=== PATIENT | male | born 2000 | race Caucasian/White ===

== ENCOUNTER 2023-11-28 21:44 | Inpatient (IN) | payer MEDICAID, OTHER ==
[~2023-11-28] VITALS: Ht 172.7 cm; Wt 88.2 kg
[2023-11-28 22:43] LABS: Basophils # (auto) 0 10 ^3/uL (0-0.2); Basophils % (auto) 0.2 % (0.0-2.0); Eosinophils # (auto) 0 10 ^3/uL (0-0.8); Hematocrit 38.4 % (41.0-53.0); Lymphocytes # (auto) 0.7 10 ^3/uL (0.4-5.4); Lymphocytes % (auto) 5.2 % (10.0-50.0); Mean Corpuscular Hemoglobin 29.1 pg (28.0-32.0); Mean Corpuscular Hgb Conc. 33.8 g/dL (32.0-36.0); Monocytes # (auto) 0.7 10 ^3/uL (0-1.3); Monocytes % (auto) 5.2 % (0.0-12.0); Neutrophils # (auto) 12.9 10 ^3/uL (1.6-8.6); Neutrophils % (auto) 89.4 % (37.0-80.0); Red Blood Cells 4.47 10^6/uL (4.5-5.90); Red Cell Distribution Width 13.9 % (11.8-14.3); White Blood Cell 14.4 10^3/uL (4.4-10.8)
[2023-11-28 22:52] LABS: Anion Gap 21 (5-15); Carbon Dioxide 15 mmol/L (20-30); Chloride 104 mmol/L (98-107); Potassium 5.1 mmol/L (3.5-5.1); Sodium 140 mmol/L (136-145)
[2023-11-28 22:53] LABS: Calcium 8.5 mg/dL (8.5-10.1)
[2023-11-28 22:58] LABS: BUN/Creatinine Ratio 8.1 (10.0-20.0); Blood Alcohol < 3.0 mg/dL (<10); Blood Urea Nitrogen 22 mg/dL (9-23); Glucose 126 mg/dL (74-106)
[2023-11-28 23:00] LABS: Acetaminophen < 2.0 UG/ML (10.0-20.0); Salicylate 3.7 mg/dL (2.8-20.0)
[2023-11-28] MEDS: LORazepam 2MG/ML-1ML VIAL IV ONE (23:31)
[2023-11-28] MEDS: SODIUM CHLORIDE 0.9% 1,000 ML IV ONE ×2 (23:32)
[2023-11-28 23:46] LABS: Amphetamine Screen, Urine Pos (NEGATIVE)
[2023-11-28 23:47] LABS: Barbiturate Scree,Urine Neg (NEGATIVE); Benzodiazephine Screen, Urine Neg (NEGATIVE); Cannabinoid Screen, Urine Pos (NEGATIVE); Cocaine Screen, Urine Pos (NEGATIVE); Opiate Scree,Urine Pos (NEGATIVE); Phencyclidine Screen, Urine Neg (NEGATIVE)
[2023-11-28 23:55] VITALS: PULSE 148; RESP 33; O2SAT 90
[2023-11-29 00:21] LABS: Lactic Acid w/Reflex 2.5 mmol/L (0.4-2.0)
[2023-11-29 00:57] LABS: Albumin 4.8 g/dL (3.2-4.8); Alkaline Phosphatase 118 U/L (46-116); Anion Gap 15 (5-15); BUN/Creatinine Ratio 7.6 (10.0-20.0); Bilirubin, Total 0.8 mg/dL (0.2-1.0); Blood Urea Nitrogen 22 mg/dL (9-23); Calcium 8.3 mg/dL (8.7-10.4); Carbon Dioxide 16 mmol/L (20-30); Chloride 108 mmol/L (98-107); Glucose 122 mg/dL (74-106); Sodium 139 mmol/L (136-145); Total Protein 7.4 g/dL (5.7-8.2)
[2023-11-29] MEDS: LACTATED RINGER'S 2,000 ML IV ONE (00:58)
[2023-11-29 01:00] LABS: INR 1.55 (0.9-1.15); Prothrombin Time 15.8 sec (9.3-11.8)
[2023-11-29] MEDS: NOREPINEPHRINE 8 MG/250ML KIT 250 ML IV SCH (01:24)
[2023-11-29 01:30] LABS: Alanine Aminotransferase > 6000 U/L (7-40); Aspartate Aminotransferase > 6000 U/L (13-40)
[2023-11-29 01:31] LABS: Potassium 6.1 mmol/L (3.5-5.1)
[2023-11-29] MEDS: ALBUTEROL SULF 2.5 MG/0.5ML(0.5%) NEB SOLN NEB ONE (01:59)
[2023-11-29] MEDS: CALCIUM GLUC 1,000mg/50ml-NS 50 ML IV ONE (02:36)
[2023-11-29] MEDS: DEXTROSE (50%) 50ML SYRG IV ONE (02:49)
[2023-11-29] MEDS: SODIUM BICARB 8.4% 50Meq/50ml SYR Vial IV ONE (02:49)
[2023-11-29] MEDS: InsuLIN REG 1unit/0.01ml Soln (100units/ml) IV ONE (02:52)
[2023-11-29] MEDS ORDERED: IBUPROFEN 600 MG TAB PO PRN (05:15)
[2023-11-29] MEDS ORDERED: DOCUSATE SOD 100 MG CAP PO PRN (05:15)
[2023-11-29] MEDS ORDERED: HYDROcodone-ACET 5/325MG TAB PO PRN (05:15)
[2023-11-29] MEDS: SODIUM CHLORIDE 0.9% 1,000 ML IV SCH (05:41)
[2023-11-29] MEDS ORDERED: VANCOMYCIN PER PHARMACY 0 MG IV SCH (05:45)
[2023-11-29 05:52] LABS: Basophils # (auto) 0 10 ^3/uL (0-0.2); Basophils % (auto) 0.2 % (0.0-2.0); Eosinophils # (auto) 0 10 ^3/uL (0-0.8); Eosinophils % (auto) 0.1 % (0.0-7.0); Hematocrit 33.1 % (41.0-53.0); Hemoglobin 11.2 g/dL (13.5-17.5); Lymphocytes # (auto) 0.6 10 ^3/uL (0.4-5.4); Lymphocytes % (auto) 4.6 % (10.0-50.0); Mean Corpuscular Hemoglobin 29.4 pg (28.0-32.0); Mean Corpuscular Hgb Conc. 33.8 g/dL (32.0-36.0); Monocytes # (auto) 0.5 10 ^3/uL (0-1.3); Monocytes % (auto) 4.4 % (0.0-12.0); Neutrophils # (auto) 11.1 10 ^3/uL (1.6-8.6); Neutrophils % (auto) 90.7 % (37.0-80.0); Red Blood Cells 3.81 10^6/uL (4.5-5.90); Red Cell Distribution Width 14.1 % (11.8-14.3); White Blood Cell 12.2 10^3/uL (4.4-10.8)
[2023-11-29] MEDS: cefTRIAXone 1GM/50ML D5W 50 ML IV ONE (05:52)
[2023-11-29 06:10] LABS: Alanine Aminotransferase > 6000 U/L (7-40); Aspartate Aminotransferase > 6000 U/L (13-40); Creatine Kinase IFCC > 7800 U/L (46-171)
[2023-11-29 06:11] LABS: Anion Gap 10 (5-15); BUN/Creatinine Ratio 10.2 (10.0-20.0); Blood Urea Nitrogen 29 mg/dL (9-23); Carbon Dioxide 22 mmol/L (20-30); Chloride 109 mmol/L (98-107); Glucose 229 mg/dL (74-106); Potassium 5.1 mmol/L (3.5-5.1); Sodium 141 mmol/L (136-145)
[2023-11-29 06:12] LABS: Alkaline Phosphatase 100 U/L (46-116); Bilirubin, Total 0.8 mg/dL (0.2-1.0)
[2023-11-29] MEDS: VANCOMYCIN 1GM/200ML 200 ML IV ONE (06:28)
[2023-11-29] MEDS ORDERED: NITROGLYCERIN 0.4 MG SL TAB SL PRN (07:30)
[2023-11-29 09:49] VITALS: PULSE 124; RESP 13; O2SAT 100
[2023-11-29 11:11] LABS: Magnesium 2.3 mg/dL (1.6-2.6)
[2023-11-29 11:13] LABS: Phosphorus 6.6 mg/dL (2.4-5.1)
[2023-11-29] MEDS: SODIUM BICARB 50mEq/50ml Vial 50 ML in SOD CHL 0.45% 1,000 ML IV SCH (11:59)
[2023-11-29 12:11] LABS: Urine Amorphous Crystal FEW /hpf (None Seen); Urine Bacteria FEW /hpf (None Seen); Urine Blood 3+ /uL (Negative); Urine Budding Yeast FEW /hpf (None Seen); Urine Mucus FEW (None Seen); Urine Protein, UAD 2+ (Negative); Urine Specific Gravity 1.016 (1.001-1.035); Urine Urobilinogen Normal (Negative); Urine WBC 6 /hpf (0 - 3); Urine pH 5.5 (5.0-9.0)
[2023-11-29 12:12] LABS: Creatinine, Urine 175.95 mg/dL (30.0-125.0)
[2023-11-29 12:14] LABS: Protein, Urine 529.8 mg/dL (0.0-11.9); Urine Protein/Creatinine Ratio 3.01
[2023-11-29 12:18] LABS: Urine Color Yellow (Yellow)
[2023-11-29 12:19] LABS: Urine Clarity CLOUDY (Clear)
[2023-11-29] MEDS: D5W 5% IV ONE ×2 (14:11→16:30)
[2023-11-29] MEDS: ACETYLCYSTEINE IV ONE ×2 (14:11→16:30)
[2023-11-29] MEDS: ONDANSETRON HCL 4 MG/2 ML VIAL IV PRN (14:20)
[2023-11-29] MEDS: LORazepam 2MG/ML-1ML VIAL IV PRN (14:21)
[2023-11-29] MEDS: D5W 5% IV SCH (21:05)
[2023-11-29] MEDS: ACETYLCYSTEINE IV SCH (21:05)
[2023-11-30 04:50] LABS: Basophils # (auto) 0 10 ^3/uL (0-0.2); Basophils % (auto) 0.3 % (0.0-2.0); Eosinophils # (auto) 0 10 ^3/uL (0-0.8); Eosinophils % (auto) 0.1 % (0.0-7.0); Hematocrit 32.7 % (41.0-53.0); Hemoglobin 11.3 g/dL (13.5-17.5); Lymphocytes # (auto) 1.5 10 ^3/uL (0.4-5.4); Lymphocytes % (auto) 20.1 % (10.0-50.0); Mean Corpuscular Hemoglobin 29.8 pg (28.0-32.0); Mean Corpuscular Hgb Conc. 34.6 g/dL (32.0-36.0); Mean Corpuscular Volume 86.1 fL (80.0-100.0); Monocytes # (auto) 0.7 10 ^3/uL (0-1.3); Monocytes % (auto) 8.9 % (0.0-12.0); Neutrophils # (auto) 5.3 10 ^3/uL (1.6-8.6); Neutrophils % (auto) 70.6 % (37.0-80.0); Nucleated Red Blood Cells % 0.1 %; Red Cell Distribution Width 13.8 % (11.8-14.3); White Blood Cell 7.5 10^3/uL (4.4-10.8)
[2023-11-30 05:03] LABS: Alkaline Phosphatase 113 U/L (46-116); Anion Gap 17 (5-15); BUN/Creatinine Ratio 6.8 (10.0-20.0); Blood Urea Nitrogen 26 mg/dL (9-23); Calcium 7.8 mg/dL (8.5-10.1); Carbon Dioxide 19 mmol/L (20-30); Chloride 101 mmol/L (98-107); Potassium 3.5 mmol/L (3.5-5.1); Sodium 137 mmol/L (136-145)
[2023-11-30 05:04] LABS: Albumin 3.4 g/dL (3.2-4.8); Bilirubin, Total 0.7 mg/dL (0.2-1.0); Total Protein 5.3 g/dL (5.7-8.2)
[2023-11-30 05:24] LABS: Alanine Aminotransferase > 6000 U/L (7-40); Aspartate Aminotransferase > 6000 U/L (13-40); Creatine Kinase IFCC > 39000 U/L (46-171); Glucose 114 mg/dL (74-106)
[2023-11-30] MEDS: cefTRIAXone 1GM/50ML D5W 50 ML IV SCH (06:03)
[2023-11-30] MEDS ORDERED: CALCIUM GLUC 1,000mg/50ml-NS 50 ML IV ONE (07:15)
[2023-11-30] MEDS ORDERED: InsuLIN REG 1unit/0.01ml Soln (100units/ml) IV ONE (07:15)
[2023-11-30] MEDS ORDERED: SODIUM BICARB 8.4% 50Meq/50ml SYR INJ IV ONE (07:15)
[2023-11-30] MEDS ORDERED: SODIUM ZIRCONIUM CYCL 10 GM PAK PO ONE (07:15)
[2023-11-30] MEDS ORDERED: DEXTROSE (50%) 50ML SYRG IV ONE (07:15)
[2023-11-30 08:30] VITALS: O2SAT 98
[2023-11-30] MEDS: SODIUM CHLORIDE 0.9% 1,000 ML IV SCH (10:30)
[2023-11-30 14:06] LABS: Anion Gap 18 (5-15); Carbon Dioxide 19 mmol/L (20-30); Chloride 101 mmol/L (98-107); Potassium 3.5 mmol/L (3.5-5.1); Sodium 138 mmol/L (136-145)
[2023-11-30 14:07] LABS: Calcium 7.9 mg/dL (8.5-10.1)
[2023-11-30 14:12] LABS: BUN/Creatinine Ratio 7.4 (10.0-20.0); Blood Urea Nitrogen 33 mg/dL (9-23); Glucose 105 mg/dL (74-106)
[2023-11-30] MEDS: BUMETANIDE 2.5mg/10ml (0.25 mg/ml) INJ IV ONE (14:45)
[2023-11-30] MEDS: MORPHINE SULFATE INJ 2 MG/ml SYRG IV PRN (18:29)
[2023-11-30 19:45] VITALS: PULSE 102; RESP 30; O2SAT 87
[2023-12-01] MEDS: ACETYLCYSTEINE 6GM/30ml (200mg/ml) IV SOLN 30ML IV ONE (03:56)
[2023-12-01 07:25] VITALS: PULSE 60; O2SAT 95
[2023-12-01 07:38] LABS: Basophils # (auto) 0 10 ^3/uL (0-0.2); Basophils % (auto) 0.7 % (0.0-2.0); Eosinophils # (auto) 0.2 10 ^3/uL (0-0.8); Eosinophils % (auto) 3.7 % (0.0-7.0); Hemoglobin 10.3 g/dL (13.5-17.5); Lymphocytes # (auto) 1.3 10 ^3/uL (0.4-5.4); Lymphocytes % (auto) 23.8 % (10.0-50.0); Mean Corpuscular Hemoglobin 29.9 pg (28.0-32.0); Mean Corpuscular Hgb Conc. 35.5 g/dL (32.0-36.0); Monocytes # (auto) 0.6 10 ^3/uL (0-1.3); Monocytes % (auto) 10.5 % (0.0-12.0); Neutrophils # (auto) 3.3 10 ^3/uL (1.6-8.6); Neutrophils % (auto) 61.3 % (37.0-80.0); Nucleated Red Blood Cells % 0.1 %; Red Blood Cells 3.45 10^6/uL (4.5-5.90); Red Cell Distribution Width 13.4 % (11.8-14.3); White Blood Cell 5.4 10^3/uL (4.4-10.8)
[2023-12-01 07:42] LABS: Calcium 7.8 mg/dL (8.5-10.1); Chloride 104 mmol/L (98-107); Potassium 3.6 mmol/L (3.5-5.1); Sodium 138 mmol/L (136-145)
[2023-12-01 07:43] LABS: Anion Gap 15 (5-15); Carbon Dioxide 19 mmol/L (20-30)
[2023-12-01 07:48] LABS: BUN/Creatinine Ratio 6.3 (10.0-20.0); Blood Urea Nitrogen 37 mg/dL (9-23); Glucose 108 mg/dL (74-106)
[2023-12-01 08:02] LABS: Creatine Kinase IFCC 34307 U/L (46-171)
[2023-12-01 22:32] VITALS: PULSE 94; RESP 18; O2SAT 99
[2023-12-02 07:30] VITALS: PULSE 85; RESP 17; O2SAT 97
[2023-12-02 07:31] LABS: Basophils # (auto) 0.1 10 ^3/uL (0-0.2); Basophils % (auto) 0.9 % (0.0-2.0); Eosinophils # (auto) 0.4 10 ^3/uL (0-0.8); Hemoglobin 10.6 g/dL (13.5-17.5); Lymphocytes # (auto) 1.5 10 ^3/uL (0.4-5.4); Lymphocytes % (auto) 22.1 % (10.0-50.0); Mean Corpuscular Hemoglobin 29.8 pg (28.0-32.0); Mean Corpuscular Hgb Conc. 35.4 g/dL (32.0-36.0); Mean Corpuscular Volume 84.2 fL (80.0-100.0); Monocytes # (auto) 0.9 10 ^3/uL (0-1.3); Monocytes % (auto) 13.5 % (0.0-12.0); Neutrophils # (auto) 4.1 10 ^3/uL (1.6-8.6); Neutrophils % (auto) 58.5 % (37.0-80.0); Nucleated Red Blood Cells % 0.1 %; Red Blood Cells 3.57 10^6/uL (4.5-5.90); Red Cell Distribution Width 13.6 % (11.8-14.3)
[2023-12-02 07:49] LABS: INR 1.48 (0.9-1.15); Prothrombin Time 15.1 sec (9.3-11.8)
[2023-12-02 07:50] LABS: Alkaline Phosphatase 137 U/L (46-116); Anion Gap 14 (5-15); Aspartate Aminotransferase 810 U/L (13-40); BUN/Creatinine Ratio 5.9 (10.0-20.0); Bilirubin, Total 0.9 mg/dL (0.2-1.0); Blood Urea Nitrogen 39 mg/dL (9-23); Carbon Dioxide 17 mmol/L (20-30); Chloride 110 mmol/L (98-107); Glucose 105 mg/dL (74-106); Potassium 3.6 mmol/L (3.5-5.1); Sodium 141 mmol/L (136-145); Total Protein 4.7 g/dL (5.7-8.2)
[2023-12-02 08:07] LABS: Alanine Aminotransferase 3275 U/L (7-40)
[2023-12-02 08:08] LABS: Creatine Kinase IFCC > 1300 U/L (46-171)
[2023-12-02] MEDS: FUROSEMIDE 100 MG/10ML VIAL IV ONE (14:00)
[2023-12-02] MEDS: SODIUM CHLORIDE 0.9% 1,000 ML IV SCH (14:00)
[2023-12-02 19:35] VITALS: PULSE 107; RESP 18; O2SAT 94
[2023-12-03] MEDS: hydrALAZINE HCL 20 MG/ML VL IV ONE (05:45)
[2023-12-03 06:37] LABS: Hematocrit 33.5 % (41.0-53.0); Hemoglobin 11.9 g/dL (13.5-17.5); Mean Corpuscular Hemoglobin 30.1 pg (28.0-32.0); Mean Corpuscular Hgb Conc. 35.7 g/dL (32.0-36.0); Mean Corpuscular Volume 84.3 fL (80.0-100.0); Red Blood Cells 3.97 10^6/uL (4.5-5.90); White Blood Cell 10.3 10^3/uL (4.4-10.8)
[2023-12-03 06:43] LABS: Alkaline Phosphatase 160 U/L (46-116); Anion Gap 17 (5-15); Aspartate Aminotransferase 314 U/L (13-40); BUN/Creatinine Ratio 4.3 (10.0-20.0); Blood Urea Nitrogen 32 mg/dL (9-23); Calcium 8.1 mg/dL (8.5-10.1); Carbon Dioxide 15 mmol/L (20-30); Chloride 110 mmol/L (98-107); Glucose 103 mg/dL (74-106); Potassium 3.2 mmol/L (3.5-5.1); Sodium 142 mmol/L (136-145)
[2023-12-03 06:44] LABS: Bilirubin, Total 0.9 mg/dL (0.2-1.0)
[2023-12-03 06:56] LABS: Alanine Aminotransferase 2338 U/L (7-40)
[2023-12-03 07:00] LABS: Creatine Kinase IFCC 8141 U/L (46-171)
[2023-12-03 08:00] VITALS: PULSE 87; RESP 16; O2SAT 94
[2023-12-03 08:03] LABS: Band Neutrophils % (manual) 0; Basophils % (manual) 0 (0.0-2.0); Blast Cells 0; Metamyelocytes % 0; Myelocytes % 0; Promyelocytes % 0; Reactive Lymphocytes 0
[2023-12-03 09:22] LABS: Hepatitis B Core Total AB Negative (Negative)
[2023-12-03] MEDS: POTASSIUM CHL 20MEQ/100ML 100 ML IV SCH (09:58)
[2023-12-03 11:49] LABS: Eosinophils % (manual) 2 (0-7); Lymphocytes % (manual) 18 (10.0-50.0); Monocytes % (manual) 17 (0-12); Platelet Estimate Decreased
[2023-12-03] MEDS: SODIUM BICARB 50mEq/50ml Vial 75 ML in SOD CHL 0.45% 1,000 ML IV SCH (12:00)
[2023-12-03 12:01] LABS: Hepatitis A Ab IgM Negative; Hepatitis A Total Antibody Positive (Negative); Hepatitis B Core IgM Negative; Hepatitis B Surface Antibody Negative (Negative); Hepatitis B Surface Antigen Negative (Negative); Hepatitis C Antibody Negative (Negative)
[2023-12-03] MEDS: MORPHINE SULFATE INJ 2 MG/ml SYRG IV PRN (18:19)
[2023-12-03 20:00] VITALS: PULSE 86; RESP 20; O2SAT 96
[2023-12-03] MEDS: PANTOPRAZOLE 40 MG/10 ML VIAL INJ IV SCH (22:02)
[2023-12-03] MEDS: MELATONIN 5 MG TAB PO PRN (22:02)
[2023-12-04] VITALS (7 sets, daily range): BP systolic 131–151; BP diastolic 75–96; PULSE 72–108; RESP 16–20; TEMP 97.6–98.6; O2SAT 94–99
[2023-12-04] MEDS: hydrALAZINE HCL 20 MG/ML VL IV PRN (06:37)
[2023-12-04 06:45] LABS: Albumin 2.9 g/dL (3.2-4.8); Alkaline Phosphatase 143 U/L (46-116); Anion Gap 18 (5-15); Aspartate Aminotransferase 148 U/L (13-40); BUN/Creatinine Ratio 4.4 (10.0-20.0); Bilirubin, Total 0.8 mg/dL (0.2-1.0); Blood Urea Nitrogen 36 mg/dL (9-23); Calcium 8.6 mg/dL (8.7-10.4); Carbon Dioxide 16 mmol/L (20-30); Chloride 109 mmol/L (98-107); Glucose 101 mg/dL (74-106); Potassium 3.5 mmol/L (3.5-5.1); Sodium 143 mmol/L (136-145); Total Protein 4.7 g/dL (5.7-8.2)
[2023-12-04 06:57] LABS: Alanine Aminotransferase 1554 U/L (7-40); Creatine Kinase IFCC 3386 U/L (46-171)
[2023-12-04 07:08] LABS: Hemoglobin 11.3 g/dL (13.5-17.5); Mean Corpuscular Hemoglobin 29.2 pg (28.0-32.0); Mean Corpuscular Hgb Conc. 34.3 g/dL (32.0-36.0); Mean Corpuscular Volume 85.1 fL (80.0-100.0); Red Blood Cells 3.88 10^6/uL (4.5-5.90); Red Cell Distribution Width 13.8 % (11.8-14.3); White Blood Cell 10.3 10^3/uL (4.4-10.8)
[2023-12-04 07:17] LABS: Band Neutrophils % (manual) 0; Basophils % (manual) 0 (0.0-2.0); Blast Cells 0; Metamyelocytes % 0; Myelocytes % 0; Promyelocytes % 0; Reactive Lymphocytes 0
[2023-12-04] MEDS: amLODIPine BESYLATE 5 MG TAB PO ONE (08:42)
[2023-12-04] MEDS: LORazepam 0.5 MG TAB PO PRN (08:46)
[2023-12-04 08:54] LABS: Eosinophils % (manual) 6 (0-7); Lymphocytes % (manual) 22 (10.0-50.0); Monocytes % (manual) 15 (0-12)
[2023-12-04 08:55] LABS: Platelet Estimate Decreased; RBC Morphology Normal
[2023-12-04] MEDS: amLODIPine BESYLATE 5 MG TAB PO SCH (09:59)
[2023-12-04 19:04] LABS: Urine Bacteria None Seen /hpf (None Seen)
[2023-12-04 19:20] LABS: Urine Blood TRACE /uL (Negative); Urine Clarity Clear (Clear); Urine Protein, UAD Negative (Negative); Urine Specific Gravity 1.005 (1.001-1.035); Urine Urobilinogen Normal (Negative); Urine WBC 2 /hpf (0 - 3)
[2023-12-04 19:21] LABS: Urine Color STRAW (Yellow)
[2023-12-05] VITALS (8 sets, daily range): BP systolic 90–169; BP diastolic 42–102; PULSE 64–91; RESP 16–20; TEMP 97.9–98.5; O2SAT 96–99
[2023-12-05 06:32] LABS: Alanine Aminotransferase 971 U/L (7-40); Albumin 2.9 g/dL (3.2-4.8); Alkaline Phosphatase 130 U/L (46-116); Anion Gap 15 (5-15); Aspartate Aminotransferase 90 U/L (13-40); BUN/Creatinine Ratio 4.1 (10.0-20.0); Blood Urea Nitrogen 35 mg/dL (9-23); Calcium 8.5 mg/dL (8.7-10.4); Carbon Dioxide 17 mmol/L (20-30); Chloride 110 mmol/L (98-107); Glucose 102 mg/dL (74-106); Potassium 3.3 mmol/L (3.5-5.1); Sodium 142 mmol/L (136-145)
[2023-12-05 06:33] LABS: Bilirubin, Total 0.7 mg/dL (0.2-1.0); Total Protein 4.8 g/dL (5.7-8.2)
[2023-12-05 06:40] LABS: Basophils # (auto) 0.1 10 ^3/uL (0-0.2); Basophils % (auto) 0.7 % (0.0-2.0); Eosinophils # (auto) 0.7 10 ^3/uL (0-0.8); Eosinophils % (auto) 6.2 % (0.0-7.0); Hematocrit 32.9 % (41.0-53.0); Hemoglobin 11.1 g/dL (13.5-17.5); Lymphocytes # (auto) 1.5 10 ^3/uL (0.4-5.4); Lymphocytes % (auto) 13.3 % (10.0-50.0); Mean Corpuscular Hemoglobin 29.2 pg (28.0-32.0); Mean Corpuscular Hgb Conc. 33.9 g/dL (32.0-36.0); Mean Corpuscular Volume 86.1 fL (80.0-100.0); Monocytes # (auto) 1.7 10 ^3/uL (0-1.3); Monocytes % (auto) 15.8 % (0.0-12.0); Red Blood Cells 3.81 10^6/uL (4.5-5.90); Red Cell Distribution Width 14.3 % (11.8-14.3)
[2023-12-05 06:43] LABS: Creatine Kinase IFCC 1751 U/L (46-171)
[2023-12-05] MEDS: cloNIDine HCL 0.1 MG TAB PO PRN (18:30)
[2023-12-06] VITALS (7 sets, daily range): BP systolic 136–169; BP diastolic 77–100; PULSE 67–96; RESP 18–20; TEMP 98–98.8; O2SAT 95–99
[2023-12-06 07:28] LABS: Alanine Aminotransferase 893 U/L (7-40); Albumin 3.3 g/dL (3.2-4.8); Alkaline Phosphatase 129 U/L (46-116); Anion Gap 14 (5-15); Aspartate Aminotransferase 71 U/L (13-40); BUN/Creatinine Ratio 3.9 (10.0-20.0); Bilirubin, Total 0.6 mg/dL (0.2-1.0); Blood Urea Nitrogen 33 mg/dL (9-23); Calcium 8.6 mg/dL (8.7-10.4); Carbon Dioxide 19 mmol/L (20-30); Chloride 108 mmol/L (98-107); Glucose 97 mg/dL (74-106); Potassium 3.6 mmol/L (3.5-5.1); Sodium 141 mmol/L (136-145); Total Protein 5.5 g/dL (5.7-8.2)
[2023-12-06 07:34] LABS: Basophils # (auto) 0.1 10 ^3/uL (0-0.2); Basophils % (auto) 0.6 % (0.0-2.0); Eosinophils # (auto) 0.5 10 ^3/uL (0-0.8); Eosinophils % (auto) 4.9 % (0.0-7.0); Hematocrit 33.1 % (41.0-53.0); Hemoglobin 11.4 g/dL (13.5-17.5); Lymphocytes # (auto) 1.6 10 ^3/uL (0.4-5.4); Mean Corpuscular Hemoglobin 29.7 pg (28.0-32.0); Mean Corpuscular Hgb Conc. 34.3 g/dL (32.0-36.0); Mean Corpuscular Volume 86.5 fL (80.0-100.0); Monocytes # (auto) 1.4 10 ^3/uL (0-1.3); Monocytes % (auto) 13.9 % (0.0-12.0); Neutrophils # (auto) 6.6 10 ^3/uL (1.6-8.6); Neutrophils % (auto) 64.6 % (37.0-80.0); Red Blood Cells 3.83 10^6/uL (4.5-5.90); Red Cell Distribution Width 14.8 % (11.8-14.3); White Blood Cell 10.2 10^3/uL (4.4-10.8)
[2023-12-06] MEDS: BUMETANIDE 2.5mg/10ml (0.25 mg/ml) INJ IV ONE (15:15)
[2023-12-06] MEDS: SODIUM CHLORIDE 0.9% 2,000 ML IV ONE (15:15)
[2023-12-07 08:00] VITALS: BP 129/76; PULSE 82; RESP 17; TEMP 98; O2SAT 95
[2023-12-07 08:33] LABS: Anion Gap 11 (5-15); Carbon Dioxide 23 mmol/L (20-30); Chloride 108 mmol/L (98-107); Potassium 3.6 mmol/L (3.5-5.1); Sodium 142 mmol/L (136-145)
[2023-12-07 08:34] LABS: Calcium 8.3 mg/dL (8.5-10.1)
[2023-12-07 08:39] LABS: BUN/Creatinine Ratio 4.2 (10.0-20.0); Blood Urea Nitrogen 32 mg/dL (9-23); Glucose 103 mg/dL (74-106)
[2023-12-07 12:00] VITALS: BP 124/79; PULSE 77; RESP 17; TEMP 97.1; O2SAT 97
[2023-12-07] MEDS: FUROSEMIDE 100 MG/10ML VIAL IV ONE (15:15)
[2023-12-07 17:00] VITALS: BP 138/87; PULSE 85; RESP 14; TEMP 98.1; O2SAT 95
[2023-12-07 20:00] VITALS: BP 150/97; PULSE 83; RESP 18; TEMP 98.1; O2SAT 100
[2023-12-07] MEDS: QUEtiapine FUMARATE 25 MG TAB PO SCH (21:27)
[2023-12-07 22:00] VITALS: BP 150/97; PULSE 83; RESP 18; TEMP 98.7; O2SAT 100
[2023-12-08] VITALS (8 sets, daily range): BP systolic 107–162; BP diastolic 56–88; PULSE 65–95; RESP 16–22; TEMP 97.1–98.4; O2SAT 93–100
[2023-12-08 08:38] LABS: Chloride 103 mmol/L (98-107); Potassium 3.6 mmol/L (3.5-5.1); Sodium 141 mmol/L (136-145)
[2023-12-08 08:39] LABS: Anion Gap 11 (5-15); Carbon Dioxide 27 mmol/L (20-30)
[2023-12-08 08:40] LABS: Calcium 8.2 mg/dL (8.5-10.1)
[2023-12-08 08:45] LABS: BUN/Creatinine Ratio 6.9 (10.0-20.0); Glucose 97 mg/dL (74-106)
[2023-12-08 08:47] LABS: Creatine Kinase IFCC 497 U/L (46-171)
[2023-12-08 08:49] LABS: Blood Urea Nitrogen 45 mg/dL (9-23)
[2023-12-08] MEDS: FUROSEMIDE 100 MG/10ML VIAL IV ONE (15:19)
[2023-12-08] MEDS: HYDROcodone-ACET 5/325MG TAB PO PRN (18:28)
[2023-12-09 00:18] VITALS: BP 131/78; PULSE 63; RESP 21; TEMP 97.9; O2SAT 95
[2023-12-09 07:43] LABS: Alanine Aminotransferase 522 U/L (7-40); Alkaline Phosphatase 117 U/L (46-116); Anion Gap 12 (5-15); Aspartate Aminotransferase 42 U/L (13-40); BUN/Creatinine Ratio 7.6 (10.0-20.0); Bilirubin, Total 0.5 mg/dL (0.2-1.0); Blood Urea Nitrogen 37 mg/dL (9-23); Calcium 8.5 mg/dL (8.7-10.4); Carbon Dioxide 29 mmol/L (20-30); Chloride 100 mmol/L (98-107); Glucose 103 mg/dL (74-106); Potassium 3.2 mmol/L (3.5-5.1); Sodium 141 mmol/L (136-145); Total Protein 6.6 g/dL (5.7-8.2)
[2023-12-09 08:00] VITALS: BP 129/82; PULSE 64; RESP 18; TEMP 98.9; O2SAT 96
[2023-12-09 08:51] VITALS: BP 129/82; PULSE 64; RESP 18; TEMP 98.9; O2SAT 96
[2023-12-09] MEDS: PANTOPRAZOLE 40 MG TAB PO SCH (09:34)
[2023-12-09] MEDS: POTASSIUM EFFERVESENT TAB 25 MEQ PO ONE (11:09)
[2023-12-09 12:21] VITALS: BP 129/82; TEMP 37.2
[2023-12-09 12:29] VITALS: BP 134/86; PULSE 73; RESP 18; TEMP 98.4; O2SAT 99
[2023-12-10 07:06] LABS: RPR Non Reactive (Non Reactive)
[2023-12-10 08:06] LABS: HSV 2 IgG Antibody 9.17 index (0.00-0.90)
[2023-12-10 23:07] LABS: Chlamydia Trachomatis, NAA Negative (Negative); Neisseria gonorrhoeae, NAA Negative (Negative)
== END 2023-12-09 15:10 | disposition home or self-care (01) | DRG 812 ==
LOC: ER 21:44 → EDBD 21:44 → TELE 11-29 07:29 → TELE-CENTR 12-04 13:43 → CENTRAL 12-07 00:22
PROVIDERS: ADMIT Nurse Practitioner Acute Care; ATTEND Nurse Practitioner Acute Care
DX: T40.411A Poisoning by fentanyl or fentanyl analogs, accidental (unintentional), initial encounter (principal); K72.00 Acute and subacute hepatic failure without coma; D65 Disseminated intravascular coagulation [defibrination syndrome]; N17.0 Acute kidney failure with tubular necrosis; R65.11 Systemic inflammatory response syndrome (SIRS) of non-infectious origin with acute organ dysfunction; E87.20 Acidosis, unspecified; M62.82 Rhabdomyolysis; E87.5 Hyperkalemia; F15.10 Other stimulant abuse, uncomplicated; I10 Essential (primary) hypertension; F41.9 Anxiety disorder, unspecified; F31.9 Bipolar disorder, unspecified; F90.9 Attention-deficit hyperactivity disorder, unspecified type; E66.9 Obesity, unspecified; G92.8 Other toxic encephalopathy; R74.01 Elevation of levels of liver transaminase levels; I27.20 Pulmonary hypertension, unspecified; R56.9 Unspecified convulsions; F19.929 Other psychoactive substance use, unspecified with intoxication, unspecified; Z78.1 Physical restraint status; Z79.899 Other long term (current) drug therapy; Z56.0 Unemployment, unspecified; Z68.29 Body mass index [BMI] 29.0-29.9, adult
CPT/HCPCS: 36415; 70450; 76705; 76775; 80048; 80053; 80074; 80307; 80320; 80329; 81001; 82140; 82306; 82550; 82570; 82962; 83605; 83735; 83970; 84100; 84156; 84300; 84484; 85007; 85025; 85027; 85610; 86592; 86695; 86696; 86703; 86704; 86706; 86708; 86803; 87040; 87340; 93005; 93306; 94640; 97163; 99291; 99292; C9113; G0378; J1815; J2405; J3480; J7060